=== PATIENT | male | born 1990 | race Caucasian/White ===

== ENCOUNTER 2017-04-29 11:44 | Emergency (ER) | payer SELFPAY ==
[~2017-04-29 11:44] MED LIST: KETOROLAC10 MG PO; NO HOME MEDICATIONS; NORCO 325 MG-51 TA1 PO; NORCO 325 MG-51 TAB PO; OXYCODONE5 M1 PO; ZITHROMAX500 M2 PO
[2017-04-29] MEDS ORDERED: CYCLOBENZAPRINE10 M1 PO (11:54)
[2017-04-29 12:36] LABS: EOS # 0.1 (0.04-0.40); EOS % 1.4 % (0.0-4.0); HEMOGLOBIN 14.1 g/dL (13.5-18.0); LYMPH# 1.9 (1.50-4.00); MEAN CELL VOLUME 83 fl (78-100); MEAN CORPUSCULAR HEMOGLOBIN 27 pg (27-31); MEAN CORPUSCULAR HGB CONC 32 g/dL (33-37); MONO # 0.7 (0.20-0.80); NEU # 6.5 (1.40-6.50); PLATELET COUNT 294 K/mm3 (130-400); RED BLOOD COUNT 5.33 M/mm3 (4.20-5.60); RED CELL DISTRIBUTION WIDTH 14.6 % (11.5-14.5); WHITE BLOOD COUNT 9.1 K/mm3 (4.8-10.8)
[2017-04-29 12:52] LABS: ALBUMIN 4.5 g/dL (3.5-5.0); BUN/CREATININE RATIO 16.2 (6.0-26.0); CALCIUM 9.2 mg/dL (8.4-10.2); POTASSIUM 4.2 mmol/L (3.6-5.0); TOTAL BILIRUBIN 0.4 mg/dL (0.2-1.3); TOTAL PROTEIN 7.9 g/dL (6.3-8.2)
[2017-04-29 14:20] LABS: URINE APPEARANCE CLEAR; URINE COLOR YELLOW
[2017-04-29 14:21] LABS: URINE BILIRUBIN NEGATIVE (NEGATIVE); URINE BLOOD NEGATIVE (NEGATIVE); URINE GLUCOSE NEGATIVE (NEGATIVE); URINE KETONE NEGATIVE (NEGATIVE); URINE LEUKOCYTE ESTERASE NEGATIVE (NEGATIVE); URINE MUCUS PRESENT (NOT PRESENT); URINE NITRATE NEGATIVE (NEGATIVE); URINE PROTEIN(semi-quant) TRACE mg/dL (NEGATIVE); URINE UROBILINOGEN NORMAL (NORMAL); URINE WBC 0-1 /hpf (0-3)
[2017-04-29] MEDS ORDERED: NORCO 325 MG-51 TA1 PO (15:42)
[2017-04-29] MEDS ORDERED: ORPHENADRINE C100 MG PO (15:42)
[2017-04-29 15:59] VITALS: BP 124/71
== END 2017-04-29 16:15 | disposition home or self-care (01) ==
LOC: ED 11:44
PROVIDERS: Physician Assistant
DX: F17.210 Nicotine dependence, cigarettes, uncomplicated (principal); R07.89 Other chest pain; M25.512 Pain in left shoulder; K59.00 Constipation, unspecified; Z88.1 Allergy status to other antibiotic agents; Z88.5 Allergy status to narcotic agent
CPT/HCPCS: J1885; J2360; J2405

== ENCOUNTER → 2017-10-26 | Outpatient (CLI) | payer SELFPAY ==
[~2017-10-26] MED LIST changes: +CYCLOBENZAPRINE10 M1 PO; +ORPHENADRINE C100 MG PO
[2017-10-26 10:50] LABS: BUN/CREATININE RATIO 19.4 (6.0-26.0); CALCIUM 8.8 mg/dL (8.4-10.2); POTASSIUM 4.1 mmol/L (3.6-5.0)
[2017-10-26 11:00] LABS: D-DIMER 0.11 mg/L FEU (0.15-0.50)
== END ==
LOC: LAB 10:22
PROVIDERS: Physician Assistant
DX: M23.42 Loose body in knee, left knee (principal)

== ENCOUNTER 2018-02-25 06:55 | Emergency (ER) | payer SELFPAY ==
[~2018-02-25] VITALS: Ht 193 cm; Wt 109.1 kg
[2018-02-25] MEDS ORDERED: CITALOPRAM HBR10 MG (07:03)
[2018-02-25 07:50] LABS: HEMATOCRIT 46.7 % (42.0-52.0); HEMOGLOBIN 15.5 g/dL (13.5-18.0); MEAN CELL VOLUME 82 fl (78-100); MEAN CORPUSCULAR HEMOGLOBIN 27 pg (27-31); MEAN CORPUSCULAR HGB CONC 33 g/dL (33-37); MEAN PLATELET VOLUME 9.5 fl (7.4-10.4); PLATELET COUNT 302 K/mm3 (130-400); RED BLOOD COUNT 5.71 M/mm3 (4.20-5.60); RED CELL DISTRIBUTION WIDTH 14.7 % (11.5-14.5); WHITE BLOOD COUNT 7.1 K/mm3 (4.8-10.8)
[2018-02-25 07:54] LABS: ALBUMIN 4.6 g/dL (3.5-5.0); CALCIUM 9.4 mg/dL (8.4-10.2); POTASSIUM 4.8 mmol/L (3.6-5.0); TOTAL BILIRUBIN 0.4 mg/dL (0.2-1.3); TOTAL PROTEIN 7.7 g/dL (6.3-8.2)
[2018-02-25 08:05] LABS: LYMPHOCYTE 27 % (20-51); MONOCYTE 10 % (3-10); NEUTROPHILS 61 % (42-75)
[2018-02-25 09:49] VITALS: BP 127/71
[2018-02-25] MEDS ORDERED: NORCO 325 MG-51 TA1 PO (09:53)
== END 2018-02-25 10:00 | disposition home or self-care (01) ==
LOC: ED 06:55
PROVIDERS: Nurse Practitioner Family
DX: M94.0 Chondrocostal junction syndrome [Tietze] (principal); F32.9 Major depressive disorder, single episode, unspecified; Z79.899 Other long term (current) drug therapy; F17.210 Nicotine dependence, cigarettes, uncomplicated
CPT/HCPCS: J1885

== ENCOUNTER 2018-10-08 20:25 | Emergency (ER) | payer OTHER ==
[~2018-10-08 20:25] MED LIST changes: +CITALOPRAM HBR10 MG
[2018-10-08] MEDS ORDERED: CITALOPRAM40 MG PO (20:44)
[2018-10-08] MEDS ORDERED: ARIPIPRAZOLE10 M1 PO (20:44)
[2018-10-08 22:42] VITALS: BP 123/71
== END 2018-10-08 22:42 | disposition home or self-care (01) ==
LOC: ED 20:25
DX: S93.402A Sprain of unspecified ligament of left ankle, initial encounter (principal); F32.9 Major depressive disorder, single episode, unspecified; W19.XXXA Unspecified fall, initial encounter; Y92.009 Unspecified place in unspecified non-institutional (private) residence as the place of occurrence of the external cause

== ENCOUNTER → 2018-10-12 | Outpatient (CLI) | payer SELFPAY ==
[2018-10-08 22:42] VITALS: BP 123/71
[~2018-10-12] MED LIST changes: +ARIPIPRAZOLE10 M1 PO; +CITALOPRAM40 MG PO
== END ==
LOC: RAD 17:31
DX: S93.402A Sprain of unspecified ligament of left ankle, initial encounter (principal)

== ENCOUNTER 2018-11-01 23:10 | Emergency (ER) | payer SELFPAY ==
[2018-11-01 23:25] VITALS: BP 122/80
== END 2018-11-02 00:46 | disposition left against medical advice (07) ==
LOC: ED 23:10
DX: K92.1 Melena (principal)